=== PATIENT | female | born 1955 | race Caucasian/White ===

== ENCOUNTER 2021-12-02 06:40 | Day surgery (SDC) | payer MEDICARE, OTHER ==
--- NOTE | 2021-11-26 11:52 | NUR ---
DOS:12-02-21 STAIRS: 4 TO THE FRONT DOOR, BUT IS USES SIDE DOOR 1 STEP WALKER: HAS A FWW AND WAS INSTRUCTED TO BRING IT ON THE DAY OF SURGERY TOILETS: TALL AND HAS A RISER IF NEEDED SHOWER: STEP OVER AND WILL NEED TO GET SHOWER CHAIR. gAVE HANDOUT ON [facility]ERAP[facility]: HAS CARLOSFREINJoey THAT WILL HELP HER AROUND THE HOME, AND HAS A HELPER COMING FROM [facility]. FOR PHYSICAL THERAPY THEY WILL COME INTO THE HOME, [place] WILL BE HER BOTTOM LINER IF SHE NEEDS TO GET SOMEPLACE.
[~2021-12-02] VITALS: Ht 160 cm; Wt 71.8 kg
--- NOTE | ~2021-12-02 | OR ---
[facility] [address], [place] [address] Draft DATE OF OPERATION: 12/02/2021 SURGEON: Danny Coronel MD PREOPERATIVE DIAGNOSIS: Degenerative joint disease left knee. POSTOPERATIVE DIAGNOSIS: Degenerative joint disease left knee. PROCEDURE PERFORMED: Left TKR with Santhosh. REHAB NURSE: Sima Vargas PA-C. Sima was present and critical for all portion of procedure. ANESTHESIA: Spinal. BLOOD LOSS: 175 mL. IMPLANTS: [employer] Triathlon size 3 femur, 2 tibia, 10 mm polyethylene and 29 mm patella. BRIEF HISTORY: Jose is a 66-year-old lady with worsening arthrosis in her knee. She had undergone nonoperative treatment without substantial relief. Risks and benefits of operative treatment were discussed with her and she elected to proceed. DESCRIPTION OF PROCEDURE: Once consent was obtained, she was taken to the operating room. After adequate anesthesia, she was placed on operating table. All downside pressure points were well padded. The left leg was then prepped and draped in a standard sterile fashion without a tourniquet. The knee was approached through a standard midline incision. The mid vastus approach was then performed. The MCL was elevated with a sleeve around the posteromedial corner. The infrapatellar fat pad was excised. The anterior horns of menisci were transected as was the ACL. PCL was found to be intact. The knee was then flexed. The checkpoints for the Santhosh system were placed in the medial femoral condyle PATIENT NAME: JOSE GOMEZ OPERATIVE REPORT DATE OF : 51 REPORT #: [id number] PHYSICIAN: DANNY CORONEL MD PCP: CALIN SINGH MD REPORT IS CONFIDENTIAL AND NOT TO BE RELEASED WITHOUT AUTHORIZATION [facility] [address], [place] [address] Draft and proximal tibia. The computer rays were proximally placed in the medial femoral condyle and percutaneously into the tibia. The leg was registered with the computer and the fine anatomic points were registered. The varus valgus laxity was then checked and the prosthesis was changed just a little bit in the computer. The robot was then brought in and the 4 straight cuts were made with care taken to protect the surrounding soft tissues. The 2 angle cuts were made and all the bony surfaces were removed. Any remaining osteophytes were removed. The trials were then positioned. She was a little loose with 9 mm to 10 mm of fit nicely. The patella was cut sized and drilled for an asymmetric 29 patella. The distal femoral drill holes were made and the proximal tibia was finished using the keel punch. The trials were then removed. Proximal tibia was finished with the drill holes. Her bone surfaces were good, so we elected to go with a non-cemented prosthesis. Tibia was impacted into position first followed by the polyethylene. The femur was impacted and the knee was extended and nicely loaded. The patella was clamped into position and the knee was taken through range of motion and found to be quite stable. The knee was pulse lavaged at intervals throughout the procedure. A total of 3 L normal saline was used. There was the Aricept soak in the middle. The On-Q pain pump was percutaneously placed into the adductor canal from the suprapatellar pouch. The periarticular soft tissues were injected with 100 mL ropivacaine toward Toradol mixture. Arthrotomy was closed using #2 STRATAFIX. The subcutaneous tissue with 0 Quill and the subcutaneous tissue with 3-0 STRATAFIX. Steri-Strips were applied. The wound was dressed with Aquacel dressing, ABD, and Paresh wrap. She tolerated the procedure well. All sponge, needle, and instrument counts were correct. Danny Coronel MD BA/MODL /[id number] Copies: ~ PATIENT NAME: JOSE GOMEZ OPERATIVE REPORT DATE OF : 51 REPORT #: [id number] PHYSICIAN: DANNY CORONEL MD PCP: CALIN SINGH MD REPORT IS CONFIDENTIAL AND NOT TO BE RELEASED WITHOUT AUTHORIZATION
[~2021-12-02 06:40] MED LIST: ALPRAZOLAM0.5 MG PO; ATENOLOL50 MG PO; CETIRIZINE HCL10 MG PO; CURCUMIN1 GM MISC; FISH OIL 1,0001 EAC3 PO; HYDROMORPHONE HC4 MG PO; IRON325 M1 PO; LISINOPRIL-HCT1 EACH PO; MIRALAX17 GM PO; NORCO 5-325 TA1 EACH PO; OCUVITE TABLET1 EAC1 PO; OXYCODONE HCL5 MG PO; PRILOSEC OTC20 MG PO; SIMVASTATIN40 MG PO; VENLAFAXINE HCL75 MG PO; VIT C-ROSE HIP500 MG PO; VITAMIN B COMP1 EACH PO; XARELTO10 MG PO
[2021-12-02] MEDS ORDERED: GLUCERNA237 ML PO (07:07)
[2021-12-02] MEDS ORDERED: MELOXICAM5 MG PO (07:08)
[2021-12-02] MEDS ORDERED: DICLOFENAC SODI75 MG PO (10:03)
[2021-12-02] MEDS ORDERED: XARELTO10 MG PO (10:03)
[2021-12-02] MEDS ORDERED: GABAPENTIN300 MG PO (10:04)
[2021-12-02] MEDS ORDERED: ACETAMINOPHEN500 MG PO (10:04)
[2021-12-02] MEDS ORDERED: OXYCODONE HCL5 MG PO (10:04)
[2021-12-02] MEDS ORDERED: SENNA LAX8.6 MG PO (10:05)
--- NOTE | 2021-12-02 10:19 | NUR ---
12/02/21 Donna9 Elsy Lang 1011 PATIENT RESTING WITH EYES CLOSED. AWAKENS WITH VERBAL STIMULI, BACK TO SLEEP WHEN NOT STIMULATED. RESP EVEN AND UNLABORED, MASK AT 6 LITERS. 1015 PATIENT RESTING WITH EYES CLOSED. AWAKENS WITH VERBAL STIMULI. DENIES PAIN OR NAUSEA. BACK TO SLEEP WHEN NOT STIMULATED. RESP EVEN AN UNLABORED, MASK OFF, ROOMAIR SATS >98%. CRYO CUFF ON. BILAT KNEE HIGH COMPRESSIONS STOCKINGS ON. BILAT FOOT CUFF ON. BILAT ROLLED TOWELS UNDER HEALS.
--- NOTE | 2021-12-02 11:18 | NUR ---
1040-PATIENT RETURNED TO UNIT VIA STRETCHER FROM PACU. AAWAKE AND OREIENTED ON ARIVAL. VSS, RESP EVEN UNLABORED ON RA. DRESSING C/D/I, CMS WNL. PT DENIES PAIN AND NAUSEA AT THIS TIME. [place] PO INTAKE WELL. SCD'S. COMPRESSION SOCKS, CRYO CUFFS IN PLACE. ICE WATER AND CRACKERS PROVIDED. REG LUNCH ORDERED. POC DISCUSSED AND PT AGREEABLE. PT DENIES NEEDS AND REQUESTS. CALL LIGHT WITHIN REACH. SISTER AT THE BEDSIDE. 1110- IV PAIN RX ADMINISTRED AD OREDERED. PT COMFORTABLE WITHOUT NEEDS OR REQUESTS AT THIS TIME.
--- NOTE | 2021-12-02 12:11 | NUR ---
1140-PT VITAL REMAIN THE SAME. PT VOICED PAIN LEVEL IS AT AN 8 SO ADMINISTERED PAIN RX ORDERED. PT TOLERATED LUNCH WELL. DRESSING WAS DRY AND INTACT. PEDAL PULSE STRONG. GAVE PT WARM BLANKET AND BEAR HUG. SISTER REMAINS AT BEDSIDE. IV CONVERTED TO SALINE LOCK. COMPRESSION SOCKS, SCD, CRYO CUFF REMAIN IN PLACE. NO NEEDS VOICED AT THIS TIME. CALL LIGHT WITHIN REACH.
--- NOTE | 2021-12-02 12:50 | NUR ---
PT RESTING. RATES PAIN IN L KNEE 2/10 AND DECLINES ANY NEEDS AT THIS TIME. FRIEND AT BEDSIDE.
--- NOTE | 2021-12-02 14:14 | NUR ---
1405: PHYSICAL THERAPY AT THE BEDSIDE FOR SESSION
--- NOTE | 2021-12-02 15:16 | NUR ---
1440- PATIENT RETURNED FROM PT SAFE TO DC HOME PER THERAPIST. TC TO SENA SANCHEZ AND REPORT PROVIDED. NEW ORDER RECIEVED FOR DISCHARGE AT THIS TIME. 1450- VITAL SIGN STABLE. RESPERATIONS UNLABORED. PT DENIES NAUSEA AND REPORTSD TOLERABLE PAIN LEVEL 1 OUT OF 10. DRESSING REMAINS CLEAN DRY AND IN TACT. SECOND DOSE OF ANTIBIOTICS INFUSED ORDERED SEE EMAR. SALINE LOCK REMOVED WITH CAP TIP IN TACT. IV SITE WITHIN NORMAL LIMITS. 400 Ml OF URINE DRAINED FROM HAT FROM PT SESSION. PT AWAITING DC INSTRUCTIONS.
--- NOTE | 2021-12-02 15:36 | NUR ---
1505: DC INSTRUCTIONS PROVIDED AND DISCUSSED ORDERED. PT VOICES UNDERSTANDING AND DENIES QUESTIONS AND CONCERNS AT THIS TIME. WHEELED OFF OF UNIT BY THIS RN. TRANSFERS INTO VEHICLE INDEPENDENTLY AND APPROPRIATELY
== END 2021-12-02 15:05 | disposition still patient (30) ==
LOC: DS 06:40 → OPS 09:05 → DS 11:30
PROVIDERS: ATTEND Specialist
PROC: 0SRD06Z Replacement of Left Knee Joint with Oxidized Zirconium on Polyethylene Synthetic Substitute, Open Approach (ICD-10-PCS; principal; 2021-12-02 09:05)
DX: M17.12 Unilateral primary osteoarthritis, left knee (principal); Z88.8 Allergy status to other drugs, medicaments and biological substances
CPT/HCPCS: 01402; 64447; 64450; 76942; 97110; 97161; C1713; C1776; J0690; J1100; J1885; J2001; J2250; J2704; J2795; J7040; J7121